=== PATIENT | female | born 1940 | race Caucasian/White ===

== ENCOUNTER 2018-04-05 01:23 | Emergency (ER) | payer MEDICARE, BC ==
[2018-04-05 01:48] VITALS: BP 144/94
[2018-04-05] MEDS ORDERED: Acetaminophen 325 MG Tab PO ONE (02:06)
[2018-04-05] MEDS ORDERED: Benzocaine/Cetylpyridinium/Menthol Lozenge MUCMEM STA (02:10)
[2018-04-05] MEDS ORDERED: Dexamethasone 4 MG/ML SDV PO ONE (02:10)
--- NOTE | 2018-04-05 02:15 | EDM.PDOC ---
ED HPI GENERAL MEDICAL PROBLEM - General Chief Complaint: ENT Problem Stated Complaint: FEVER Time Seen by Provider: 04/05/18 02:04 Source of Information: Reports: Patient, Family, RN Notes Reviewed History Limitations: Reports: No Limitations - History of Present Illness INITIAL COMMENTS - FREE TEXT/NARRATIVE: 77-year-old female presents to emergency department today sore throat, fever difficulty swallowing, she states the sore throat started about 3 days ago was progressively gotten worse started having fever today she has lost her voice, does feel short of breath no cough no sputum production no chest pain no GI difficulties throat Pain Score (Numeric/FACES): 8 - Related Data Allergies Allergy/AdvReac Type Severity Reaction Status Date / Time codeine Allergy Rash Verified 04/05/18 01:43 meperidine HCl [From Demerol] Allergy Hypotension Verified 04/05/18 01:43 Sulfa (Sulfonamide Allergy Rash Verified 04/05/18 01:43 Antibiotics) Home Meds: Home Meds Acetaminophen [Mapap] 325 mg PO Q4HR 01/05/15 [History] Aspirin [Halfprin] 81 mg PO DAILY 01/05/15 [History] Calcium Carbonate/Vitamin D3 [Os-Glenn 500+D Caplet] 1 each PO BID 01/05/15 [ History] Cyanocobalamin (Vitamin B-12) [B-12] 1,000 mcg PO DAILY 01/05/15 [History] Dorzolamide HCl/Timolol Maleat [Dorzolamide-Timolol Eye Drops] 1 drp EYEBOTH BID 01/05/15 [History] Latanoprost 1 drop EYEBOTH BEDTIME 01/05/15 [History] Past Medical History HEENT History: Reports: Glaucoma, Macular Degeneration Other Dermatologic History: face x2 - Past Surgical History GI Surgical History: Reports: Appendectomy Social & Family History - Tobacco Use Smoking Status *Q: Never Smoker ED ROS ENT - Review of Systems Review Of Systems: See Below Constitutional: Reports: Fever HEENT: Reports: Throat Pain, Throat Swelling Respiratory: Reports: Shortness of Breath. Denies: Cough, Sputum Cardiovascular: Reports: No Symptoms GI/Abdominal: Reports: No Symptoms : Reports: No Symptoms Musculoskeletal: Reports: No Symptoms Skin: Reports: No Symptoms Neurological: Reports: No Symptoms Psychiatric: Reports: No Symptoms ED EXAM, ENT - Physical Exam Exam: See Below Text/Narrative:: General: Female, not in distress, alert and oriented x3 HEENT: head is atraumatic normocephalic, eyes pupils equal round reactive to light, sclera clear no conjunctivitis appreciated. Ears tympanic membranes clear and benson landmarks and light reflex are present bilaterally canals are clear. Nose no septal deviation, nares are clear, no blood present. Mouth mucosa is moist and pink no erythema or exudate noted in soft palate, tongue is midline uvula is midline, dentition is intact. Neck: Supple no thyromegaly no tracheal deviation. Nodes: Cervical nodes subclavicular nodes nontender no palpable lymphadenopathy noted. Lungs: Rhonchi with wheezing right side mid to lower left is clear. CV: Regular rate and rhythm S1 and S2 appreciated no murmurs rubs or gallops noted. Abdomen: Soft, nontender, no palpable masses or organomegaly appreciated, no distention no guarding bowel sounds are present, . Neuro: Cranial nerves II through XII grossly intact Skin: Warm and dry, intact Extremities: No lower extremity edema appreciated, Course - Vital Signs Last Recorded V/S: Last Vital Signs Temp 102 F H 04/05/18 02:20 Pulse 103 H 04/05/18 01:47 Resp 18 04/05/18 01:47 BP 144/94 H 04/05/18 01:47 Pulse Ox 93 L 04/05/18 01:47 - Orders/Labs/Meds Orders: Active Orders 24 hr Category Date Time Status Chest 2V [CR] Urgent Exams 04/05/18 02:10 Taken CULTURE STREP A CONFIRMATION [] Stat Lab 04/05/18 01:40 Results STREP SCRN A RAPID W CULT CONF [] Stat Lab 04/05/18 01:40 Ordered Labs: Laboratory Tests 04/05/18 04/05/18 04/05/18 Range/Units 02:22 02:22 02:22 WBC 7.5 (4.5-11.0) K/uL RBC 3.94 (3.30-5.50) M/uL Hgb 13.4 (12.0-15.0) g/dL Hct 39.4 (36.0-48.0) % MCV 100 H (80-98) fL MCH 34 H (27-31) pg MCHC 34 (32-36) % Plt Count 223 (150-400) K/uL Neut % (Auto) 86 H (36-66) % Lymph % (Auto) 7 L (24-44) % [place] % (Auto) 7 H (2-6) % Eos % (Auto) 1 L (2-4) % Baso % (Auto) 0 (0-1) % Sodium 139 L (140-148) mmol/L Potassium 3.9 (3.6-5.2) mmol/L Chloride 106 (100-108) mmol/L Carbon Dioxide 26 (21-32) mmol/L Anion Gap 10.9 (5.0-14.0) mmol/L BUN 15 (7-18) mg/dL Creatinine 1.0 (0.6-1.0) mg/dL Est Cr Clr Drug Dosing 38.97 mL/min Estimated GFR (MDRD) 54 L (>60) Glucose 124 H (74-106) mg/dL Lactic Acid 1.8 (0.4-2.0) mmol/L Calcium 8.3 L (8.5-10.1) mg/dL Total Bilirubin 0.2 (0.2-1.0) mg/dL AST 24 (15-37) U/L ALT 16 (12-78) U/L Alkaline Phosphatase 109 (46-116) U/L Total Protein 6.8 (6.4-8.2) g/dL Albumin 3.2 L (3.4-5.0) g/dL Globulin 3.6 H (2.3-3.5) g/dL Albumin/Globulin Ratio 0.9 L (1.2-2.2) Meds: Medications Discontinued Medications Generic Name Dose Route Start Last Admin Trade Name Ederq PRN Reason Stop Dose Admin Acetaminophen 650 mg 04/05/18 02:06 04/05/18 02:20 Tylenol PO 04/05/18 02:07 650 mg NOW ONE Administration Benzocaine/Menthol 1 lozenge 04/05/18 02:10 04/05/18 02:21 Cepacol Sore Throat MUCMEM 04/05/18 02:11 1 roni NOW STA Administration Dexamethasone 5 mg 04/05/18 02:10 04/05/18 02:20 Dexamethasone PO 04/05/18 02:11 5 mg ONETIME ONE Administration Departure - Departure Time of Disposition: 02:56 Disposition: Home, Self-Care 01 Condition: Good Clinical Impression: Pharyngitis Qualifiers: Pharyngitis/tonsillitis etiology: unspecified etiology Qualified Code(s): J02.9 - Acute pharyngitis, unspecified - Discharge Information Referrals: PCP,None [Primary Care Provider] - Forms: ED Department Discharge Additional Instructions: take full course of antibiotics, Please followup with your primary care provider in 3-5 days if not better, please call return to the emergency department with worsening of symptoms. - My Orders Last 24 Hours: My Active Orders 04/05/18 01:40 CULTURE STREP A CONFIRMATION [RM] Stat STREP SCRN A RAPID W CULT CONF [RM] Stat 04/05/18 02:10 Chest 2V [CR] Urgent - Assessment/Plan Last 24 Hours: My Active Orders 04/05/18 01:40 CULTURE STREP A CONFIRMATION [RM] Stat STREP SCRN A RAPID W CULT CONF [RM] Stat 04/05/18 02:10 Chest 2V [CR] Urgent Plan: Assessment Acuity = acute Site and laterality = pharyngitis Etiology = suspicious for bacterial cause Manifestations = fever Location of injury = Home Lab values = CBC, CMP unremarkable, chest x-ray I did review films myself I cannot appreciate any acute process, the official read from radiology is pending Plan Elected treat empirically with azithromycin 5 day course follow up with primary care 3-5 days if no improvement This note was dictated using [email or web address] voice recognition software please call with any questions on syntax or grammar.
--- NOTE | 2018-04-07 09:46 | CR ---
CHEST: 2 view CLINICAL HISTORY:Wheezing COMPARISON:2009 FINDINGS: Heart size and pulmonary vascularity are normal. Lung flannery are mild hyperaerated but tory ar. No infiltrates are seen. IMPRESSION: Mild hyperaeration
== END 2018-04-05 03:07 | disposition home or self-care (01) ==
LOC: JP.ED 01:23
DX: J02.9 Acute pharyngitis, unspecified (principal); Z88.2 Allergy status to sulfonamides; Z88.5 Allergy status to narcotic agent; Z79.82 Long term (current) use of aspirin
CPT/HCPCS: 36415; 71046; 80053; 83605; 85025; 87081; 87430; 99284; A9270; J1100

== ENCOUNTER 2019-11-22 05:49 | Day surgery (SDC) | payer MEDICARE ==
[2019-11-22] MEDS ORDERED: Dextrose 5%-Lactated Ringers 1,000 ML IV SCH (06:15)
[2019-11-22] MEDS ORDERED: Midazolam 1 MG/ML 2 ML SDV ONE (07:08)
[2019-11-22] MEDS ORDERED: fentaNYL 100 MCG/2 ML SDV ONE (07:08)
[2019-11-22] MEDS ORDERED: Propofol 200 MG/20 ML SDV ONE (07:09)
[2019-11-22 08:45] VITALS: BP 104/62; PULSE 67
--- NOTE | 2019-11-28 11:09 | OR ---
DATE OF PROCEDURE: 11/22/2019 SURGEON: Declan Jimenez MD PREOPERATIVE DIAGNOSIS: Chronic loose bowel movements and/or diarrhea with unintentional weight loss. POSTOPERATIVE DIAGNOSES: 1. Chronic loose bowel movements and/or diarrhea with unintentional weight loss. 2. Possible microscopic colitis. 3. Uncomplicated left colonic diverticulosis. OPERATIVE PROCEDURE: A flexible colonoscopy with: 1. Collection of stool for microbiologic workup. 2. Random biopsies of colon and rectum to rule out microscopic colitis. ANESTHESIA: IV sedation. INDICATION FOR PROCEDURE: A 79-year-old female presenting with ongoing frequent loose bowel movements. In [place], she had a CT scan, which was suggestive of some possible colitis. Plan is to proceed with a flexible colonoscopy with biopsies as indicated. We will also collect stool for microbiologic workup at this point as well. Potential risks including bleeding and perforation were discussed, and the patient wishes to proceed. DETAILS OF PROCEDURE: The patient was taken to the operating room and placed in a left lateral decubitus position. IV sedation was administered, after which the initial digital rectal exam was performed and was unremarkable. Colonoscope was then passed into the rectum with retroflexion revealing uncomplicated hemorrhoidal columns. Scope was eventually passed to the cecum. The prep was quite good. A scant amount of stool was evacuated and sent for culture. The patient had some uncomplicated left colonic diverticulosis. There were no polyps or other signs of neoplasia. The mucosa, particularly in the left side of the colon, appeared to be perhaps very slightly edematous. There also appeared to be somewhat more of a mucoid-type secretion than one would typically see and definitively suggestive of some possible element of microscopic colitis. At this point, multiple biopsies beginning at the cecum and remaining through the length of the colon and rectum were obtained and sent for histologic evaluation. No bleeding from the biopsy sites was seen and procedure then concluded. Plan will be to have the patient follow up with Dr. Smith or Internal Medicine staff later this week after the biopsy reports were available, and hopefully today's exam will shed some diagnostic light on what is going on here. Declan Jimenez MD /[id number] MTDD
== END 2019-11-22 09:00 | disposition home or self-care (01) ==
LOC: JP.SDS 05:49
PROVIDERS: ATTEND Surgery
DX: R19.4 Change in bowel habit (principal); K62.89 Other specified diseases of anus and rectum; K57.30 Diverticulosis of large intestine without perforation or abscess without bleeding; R63.4 Abnormal weight loss; Z68.1 Body mass index [BMI] 19.9 or less, adult
CPT/HCPCS: 45380; 87046; 87177; 87209; 87493; 87899; 88305; 89055; J2250; J2704; J3010; J7121